=== PATIENT | female | born 1980 | race Caucasian/White ===

== ENCOUNTER → 2023-07-21 | Outpatient (CLI) | payer OTHER ==
[2023-07-21 13:57] LABS: BASOPHILS ABSOLUTE AUTO 0.03 K/mm3 (0.00-0.23); BASOPHILS PERCENT AUTO 1 % (0-2); EOSINOPHILS ABSOLUTE AUTO 0.07 K/mm3 (0.00-0.68); EOSINOPHILS PERCENT AUTO 1 % (0-6); Hematocrit 43.2 % (33.0-51.0); Hemoglobin 14.6 g/dL (11.5-16.0); IMMATURE GRAN ABSOLUTE AUTO 0.02 K/mm3 (0.00-0.10); IMMATURE GRAN PERCENT AUTO 0 % (0-1); LYMPHOCYTES ABSOLUTE AUTO 1.83 K/mm3 (0.84-5.20); LYMPHOCYTES PERCENT AUTO 34 % (21-46); MONOCYTES ABSOLUTE AUTO 0.48 K/mm3 (0.16-1.47); MONOCYTES PERCENT AUTO 9 % (4-13); Mean Corpuscular HGB 28.6 pg (26.0-34.0); Mean Corpuscular HGB Conc 33.8 g/dL (31.5-36.5); Mean Corpuscular Volume 85 fL (80-100); Mean Platelet Volume 11.1 fL (9.1-12.4); NEUTROPHILS ABSOLUTE AUTO 3.02 K/mm3 (1.96-9.15); NEUTROPHILS PERCENT AUTO 55 % (41-73); Platelet Count 212 K/mm3 (150-400); RDW Coefficient Variation 13.5 % (11.7-14.2); RDW Standard Deviation 41.9 fL (35.1-46.3); Red Blood Cell Count 5.11 M/mm3 (3.80-5.20); White Blood Cell Count 5.45 K/mm3 (4.00-11.30)
[2023-07-21 14:55] LABS: Percent Saturation 46.1 % (15.0-50.0)
[2023-07-21 15:57] LABS: Albumin/Globulin Ratio 1.2 (0.8-1.8); Bilirubin, Total 0.7 mg/dL (0.1-1.0); Bun/Creatinine Ratio 19.3 (12.0-20.0); Creatinine, Blood 0.62 mg/dL (0.40-1.00); Globulin, Blood 3.4 g/dL (2.2-4.0); Potassium, Blood 3.7 mmol/L (3.5-5.5); Total Protein, Blood 7.4 g/dL (6.4-8.2)
== END | disposition home or self-care (01) ==
LOC: LAB 12:26 → LAB SHORT 12:26
PROVIDERS: Physician Assistant
DX: Z48.815 Encounter for surgical aftercare following surgery on the digestive system (principal); Z98.84 Bariatric surgery status
CPT/HCPCS: 80053; 82306; 82607; 82728; 82746; 83540; 83550; 85025

== ENCOUNTER 2024-05-17 06:23 | Inpatient (IN) | payer OTHER ==
[~2024-05-17] VITALS: Ht 160 cm; Wt 60.6 kg
[2024-05-17] VITALS (22 sets, daily range): BP systolic 96–135; BP diastolic 57–84
[2024-05-17] MEDS ORDERED: Lactated Ringer's 1,000 ML IV SCH ×2 (06:45→09:50)
[2024-05-17] MEDS ORDERED: CeFAZolin Sodium 2,000 MG in NS 100 ML IV SCH (06:45)
[2024-05-17] MEDS ORDERED: propofoL 20 ML IV ONE (06:51)
[2024-05-17] MEDS ORDERED: Rocuronium Bromide 10 MG/ML 5ML Injection IV ONE ×3 (06:52→08:59)
[2024-05-17] MEDS ORDERED: FentaNYL Citrate 50 MCG/ML 2 ML Injection ONE ×2 (06:52→07:58)
[2024-05-17] MEDS ORDERED: Lidocaine HCl 2% 20 ML MDV ONE (06:52)
[2024-05-17] MEDS ORDERED: Lidocaine HCl 2% Jelly 120MG/6ML SYR (20MG PER ML) ONE (06:55)
[2024-05-17] MEDS ORDERED: Lidocaine HCl 1% 5 ML SYR INJ ONE (07:05)
[2024-05-17] MEDS ORDERED: Ondansetron HCl 2 MG / ML 2ML Vial IV PRN ×2 (07:05→09:50)
[2024-05-17] MEDS ORDERED: HYDROmorphone HCl/Pf 1MG SYR IV PRN ×2 (07:05→09:45)
[2024-05-17] MEDS ORDERED: Midazolam HCl 1MG / ML 2ML Vial IV ONE (07:05)
[2024-05-17] MEDS ORDERED: FentaNYL Citrate 50 MCG/ML 2 ML Injection IV PRN ×2 (07:05)
[2024-05-17] MEDS ORDERED: Bupivacaine 0.5% HCl 5 MG/ML 30MLVIAL ONE (07:11)
[2024-05-17] MEDS ORDERED: Dexamethasone Sod Phos 10 MG/ML 1ML VIAL ONE (07:44)
[2024-05-17] MEDS ORDERED: Ondansetron HCl 2 MG / ML 2ML Vial ONE (07:44)
[2024-05-17] MEDS ORDERED: Phenylephrine HCl 100 MCG/ML-NS 10MLSYR (1MG/10ML) ONE (07:50)
[2024-05-17] MEDS ORDERED: ePHEDrine Sulfate 50 MG/ML 1ML Injection ONE (08:14)
[2024-05-17] MEDS ORDERED: Glycopyrrolate 0.2 MG/ML 5ML VIAL ONE (08:16)
[2024-05-17] MEDS ORDERED: Sugammadex Sodium 200 MG/2ML SDV (100 MG/ML) ONE (08:51)
[2024-05-17] MEDS ORDERED: Flumazenil 0.1 MG / ML 5ML Vial ONE (09:37)
[2024-05-17] MEDS ORDERED: DiphenhydrAMINE HCL 25 MG Cap PO PRN (09:45)
[2024-05-17] MEDS ORDERED: OxyCODONE HCL 5 MG TAB PO PRN (09:45)
[2024-05-17] MEDS ORDERED: Metoclopramide HCl 10 MG Tab PO PRN (09:50)
[2024-05-17] MEDS ORDERED: Simethicone 80 MG Chew PO PRN (09:50)
[2024-05-17] MEDS ORDERED: Naloxone HCl 0.4MG / ML 1ML Vial IV PRN (09:50)
[2024-05-17] MEDS ORDERED: Metoclopramide HCl 5MG / ML 2ML Vial IV PRN (09:50)
[2024-05-17] MEDS ORDERED: Ondansetron 4 MG TAB PO PRN (09:50)
[2024-05-17] MEDS ORDERED: Ketorolac Tromethamine 30mg Vial IV PRN (09:55)
[2024-05-17] MEDS ORDERED: HYDROmorphone HCl/Pf 1MG SYR ONE ×2 (09:56→10:15)
[2024-05-17] MEDS ORDERED: Lactated Ringer's 1,000 ML IV ONE (09:58)
[2024-05-17] MEDS ORDERED: Ketorolac Tromethamine 30mg Vial ONE (10:29)
[2024-05-17] MEDS ORDERED: Polyethylene Glycol 3350 17 gm PO PRN (11:05)
[2024-05-17] MEDS ORDERED: Acetaminophen 500 MG Tab PO PRN (11:10)
--- NOTE | 2024-05-17 11:32 | NUR ---
RECEIVED REPORT FROM RATE ENGINEERSAHARA QUIGLEY; PT TRANSFERRED TO UNIT ON OWN BED, A/0 X 4, PLEASANT/COOPERATIVE, FAMILY WITH PT. POST OP VS COMMENCED AND STABLE, PT DENIES N/V PROVIDED WITH CLEARN LIQUIDS AND ICE CHIPS. MIDLINE INCISION VISUALIZED, DRAINAGE WITH BORDERS VISUALIZED, PROVIDED PT ORIENTATION OF ROOM/CALL LIGHT, K-PAD.
--- NOTE | 2024-05-17 12:28 | NUR ---
pt tolerating po intake, reports pelvic/incision pain at -07/03, provided analgesia per mar. pt educated on pain reporting and control interventions, states understanding
[2024-05-17] MEDS ORDERED: Docusate Sodium 100 MG Cap PO SCH (21:00)
[2024-05-18 04:08] VITALS: BP 112/62
[2024-05-18 05:19] LABS: BASOPHILS ABSOLUTE AUTO 0.03 K/mm3 (0.00-0.23); BASOPHILS PERCENT AUTO 0 % (0-2); EOSINOPHILS ABSOLUTE AUTO 0.06 K/mm3 (0.00-0.68); EOSINOPHILS PERCENT AUTO 1 % (0-6); Hematocrit 34.1 % (33.0-51.0); Hemoglobin 11.4 g/dL (11.5-16.0); IMMATURE GRAN ABSOLUTE AUTO 0.03 K/mm3 (0.00-0.10); IMMATURE GRAN PERCENT AUTO 0 % (0-1); LYMPHOCYTES ABSOLUTE AUTO 1.94 K/mm3 (0.84-5.20); LYMPHOCYTES PERCENT AUTO 24 % (21-46); MONOCYTES ABSOLUTE AUTO 0.79 K/mm3 (0.16-1.47); MONOCYTES PERCENT AUTO 10 % (4-13); Mean Corpuscular HGB Conc 33.4 g/dL (31.5-36.5); Mean Corpuscular Volume 84 fL (80-100); Mean Platelet Volume 10.1 fL (9.1-12.4); NEUTROPHILS ABSOLUTE AUTO 5.09 K/mm3 (1.96-9.15); NEUTROPHILS PERCENT AUTO 64 % (41-73); Platelet Count 208 K/mm3 (150-400); RDW Coefficient Variation 13.6 % (11.7-14.2); RDW Standard Deviation 41.7 fL (35.1-46.3); Red Blood Cell Count 4.07 M/mm3 (3.80-5.20); White Blood Cell Count 7.94 K/mm3 (4.00-11.30)
--- NOTE | 2024-05-18 06:40 | NUR ---
SHIFT SUMMARY PT IS POD1 FOR AN OPEN HYSTER W/ DR. PALACIOS. MIDLINE DRESSING CHANGED THIS SHIFT, C/D/I. PT MEDICATED WITH PO TYLENOL, OXYCODONE, AND IV TORADOL W/ TOLERABLE RESULTS. PT RESTED MOST OF SHIFT. CATHETER IN PLACE DRAINING YELLOW URINE. NO VAG BLEEDING NOTED. VSS. PT USING CALL LIGHT APPROPRIATELY.
[2024-05-18 07:29] VITALS: BP 115/71
[2024-05-18 14:05] VITALS: BP 115/66
--- NOTE | 2024-05-18 18:31 | NUR ---
SHIFT SUMMARY POD 1 OPEN HYSTERECTOMY PT REPORTS PAIN MUCH IMPROVED TODAY, MEDICATION PER EMAR. DRESSING WITH MINIMAL SANGUINOUS DRAINAGE. PT AMBULATING WELL. TOLERATING PO WELL THIS AFTERNOON ABLE TO TOLERATE DINNER WITHOUT NAUSEA. VOIDING WELL. SMALL AMOUNT SANGUINOUS VAGINAL DRAINAGE WITH VOIDS.
[2024-05-18 19:20] VITALS: BP 111/77
--- NOTE | 2024-05-18 20:39 | NUR ---
ASSUMPTION OF CARE Pt sitting up in bed, visitor at bedside. Pt alert and oriented x4, reporting increased 10/10 abdominal pain, medicated with PRN oxycodone, toradol and tylenol. Pt up in room independently, visitor is attentive and assists patient as needed. Pt using call light appropriately. Dressing changed to mid abdominal incision site. Moderate amount of drainage. Binder in place as tolerated.
[2024-05-18 23:35] VITALS: BP 104/72
[2024-05-19 04:58] VITALS: BP 113/67
--- NOTE | 2024-05-19 06:26 | NUR ---
SHIFT SUMMARY No acute events overnight, pt reports she slept well, vitals remain stable and pt medicated twice for pain management. Pt independent in room, abdominal binder remains in place, pt denies any vaginal bleeding.
[2024-05-19 07:53] VITALS: BP 109/72
[2024-05-19] MEDS ORDERED: ACET500 PO (09:22)
[2024-05-19] MEDS ORDERED: DOCU100 PO (09:23)
[2024-05-19] MEDS ORDERED: OXYC5 PO (09:23)
--- NOTE | 2024-05-19 15:28 | NUR ---
CHANGED STERI STRIPS PER DR PALACIOS'S VERBAL ORDER. PT TOLERATED WELL.
[2024-05-19 15:35] VITALS: BP 121/86
--- NOTE | 2024-05-19 16:42 | NUR ---
discharged REVIEWED DC INSTRUCTIONS W/PT; VERBALIZED UNDERSTANDING. PT VOIDING, HAD BM, PASSING FLATUS, PAIN TOLERABLE. TOLERATING PO. PT LEFT UNIT IN WC, W/POSSESSIONS AND DC PAPERWORK IN HAND, ACCOMPANIED BY S.O.
== END 2024-05-19 16:33 | disposition home or self-care (01) | DRG 743 ==
LOC: MEDS 06:23 → PRE IP 07:30 → SURS 11:19 → PRE IP 11:30 → SURS 05-19 16:33
PROVIDERS: ADMIT Obstetrics & Gynecology
PROC: 0UT90ZZ Resection of Uterus, Open Approach (ICD-10-PCS; principal; 2024-05-17 07:30)
PROC: 0UT70ZZ Resection of Bilateral Fallopian Tubes, Open Approach (ICD-10-PCS; 2024-05-17 07:30)
DX: D25.2 Subserosal leiomyoma of uterus (principal); N92.0 Excessive and frequent menstruation with regular cycle; N80.329 Endometriosis of the posterior cul-de-sac, unspecified depth; M19.90 Unspecified osteoarthritis, unspecified site
CPT/HCPCS: 36415; 85025; 86850; 86900; 86901; 88307; 94760; 94762; A9270; J0690; J1100; J1170; J1885; J2250; J2371; J2405; J2704; J3010; J7120